=== PATIENT | female | born 1950 | race Caucasian/White ===

== ENCOUNTER 2018-03-01 14:39 | Emergency (ER) | payer MEDICARE, BC ==
[~2018-03-01] VITALS: Ht 160 cm; Wt 71.0 kg
[2018-03-01 14:54] VITALS: BP 115/66
[2018-03-01] MEDS ORDERED: morphine 4 MG/ML inj SYRINge IM ONE (16:00)
[2018-03-01] MEDS ORDERED: HYDROcodone/acetaminophen 10/325mg tab PO ONE (16:00)
[2018-03-01] MEDS ORDERED: LIDOcaine 1.5% w/epinephrine 1:200,000 5ml ampul IJ ONE (16:00)
[2018-03-01] MEDS ORDERED: ketorolac trometh. 30mg/ml inj. IV ONE (16:00)
[2018-03-01] MEDS ORDERED: HYDR-565 PO (17:29)
== END 2018-03-01 18:07 | disposition home or self-care (01) ==
LOC: ER 14:41
DX: S42.201A Unspecified fracture of upper end of right humerus, initial encounter for closed fracture (principal); S01.511A Laceration without foreign body of lip, initial encounter; W01.0XXA Fall on same level from slipping, tripping and stumbling without subsequent striking against object, initial encounter; Y93.89 Activity, other specified; Y92.89 Other specified places as the place of occurrence of the external cause; Y99.8 Other external cause status
CPT/HCPCS: 12011; 29105; 73030; 96372; 96374; 99284; A6449; J1885; J2270; J3490; L3650; 41250

== ENCOUNTER 2023-02-14 12:26 | Outpatient (CLI) | payer MEDICARE, BC ==
[~2023-02-14 12:26] MED LIST: barium sulfate 450ml oral suspension ONE
[2023-02-15] MEDS ORDERED: CYCL1DRO OP (15:41)
[2023-02-15] MEDS ORDERED: ALEN70TA60 PO (15:41)
[2023-02-15] MEDS ORDERED: EST1T VG (15:41)
[2023-02-15] MEDS ORDERED: AZEL50GE5 TOP (15:41)
[2023-02-15] MEDS ORDERED: [UNRECOGNIZED DRUG - OTHER] (15:41)
[2023-02-15] MEDS ORDERED: CHOL500050 PO (15:41)
[2023-02-15] MEDS ORDERED: FAMO20TA8 PO (15:41)
[2023-02-15] MEDS ORDERED: BUPR-352 PO (15:41)
[2023-02-15] MEDS ORDERED: CALC1TAB PO (15:41)
== END 2023-02-14 23:59 | disposition home or self-care (01) ==
LOC: RAD 12:26
PROVIDERS: ATTEND Surgery
DX: K44.9 Diaphragmatic hernia without obstruction or gangrene (principal)
CPT/HCPCS: 74220

== ENCOUNTER 2023-09-02 10:49 | Outpatient (CLI) | payer MEDICARE, BC ==
[~2023-09-02 10:49] MED LIST changes: +ALEN70TA60 PO; +AZEL50GE5 TOP; +BUPR-352 PO; +CALC1TAB PO; +CHOL500050 PO; +CYCL1DRO OP; +EST1T VG; +[UNRECOGNIZED DRUG - OTHER]; -barium sulfate 450ml oral suspension ONE
== END 2023-09-02 23:59 | disposition home or self-care (01) ==
LOC: RAD 10:49
PROVIDERS: ATTEND Surgery
DX: K44.9 Diaphragmatic hernia without obstruction or gangrene (principal)
CPT/HCPCS: 74220